=== PATIENT | female | born 2000 | race Two or more races ===

== ENCOUNTER 2022-09-22 16:41 | Emergency (ER) | payer SELFPAY ==
[2022-09-22 17:18] VITALS: BP 105/62; PULSE 86; RESP 16; TEMP 98.5; BMI 32.1
[2022-09-22] MEDS ORDERED: KETOROLAC TROMETHAMINE 30 MG/1 ML VIAL IM ONE (18:50)
[2022-09-22] MEDS ORDERED: KETOROLAC TROMETHAMINE 30 MG/1 ML VIAL ONE (18:51)
== END 2022-09-22 19:43 | disposition home or self-care (01) ==
LOC: JERFT 16:41
PROC: 3E023GC Introduction of Other Therapeutic Substance into Muscle, Percutaneous Approach (ICD-10-PCS; principal; 2022-09-22)
DX: S82.52XA Displaced fracture of medial malleolus of left tibia, initial encounter for closed fracture (principal); W10.8XXA Fall (on) (from) other stairs and steps, initial encounter
CPT/HCPCS: 73610-TC-LT-FY; 99284-25

== ENCOUNTER 2022-10-04 10:15 | Inpatient (IN) | payer OTHER ==
[2022-10-04 12:22] VITALS: BMI 31.1
[2022-10-04] MEDS ORDERED: MIDAZOLAM HCL 2 MG/2 ML SINGLE DOSE VIAL ONE (14:57)
[2022-10-04] MEDS ORDERED: BUPIVACAINE HCL/PF 0.5% (5 MG/ML) 30 ML VIAL IJ ONE (14:57)
[2022-10-04] MEDS ORDERED: FENTANYL CITRATE/PF 50 MCG/ML VIAL ONE ×2 (14:58→17:36)
[2022-10-04] MEDS ORDERED: PROPOFOL 20 ML ONE (15:37)
[2022-10-04] MEDS ORDERED: ceFAZolin SODIUM 1 GM VIAL ONE (15:49)
[2022-10-04] MEDS ORDERED: ONDANSETRON 4 MG/2 ML VIAL ONE ×2 (15:53→17:36)
[2022-10-04] MEDS ORDERED: DEXAMETHASONE SOD PHOSPHATE 4 MG/1 ML VIAL ONE (15:53)
[2022-10-04] MEDS ORDERED: KETOROLAC TROMETHAMINE 30 MG/1 ML VIAL ONE (17:24)
[2022-10-04] MEDS ORDERED: ACETAMINOPHEN INJECTION 100 ML IVPB ONE (17:39)
[2022-10-04] MEDS ORDERED: HYDROmorphone HCL/PF 1 MG/ML VIAL ONE (17:39)
[2022-10-04] MEDS: HYDROmorphone HCl 2 MG/ML VIAL IVPUSH PRN ×3 (17:43→18:03)
[2022-10-04] MEDS ORDERED: ONDANSETRON 4 MG/2 ML VIAL IVPUSH PRN (17:44)
[2022-10-04] MEDS ORDERED: oxyCODONE HCL 5 MG TABLET PO PRN (17:44)
[2022-10-04] MEDS ORDERED: LACTATED RINGERS SOLUTION 1,000 ML IV SCH (17:45)
[2022-10-05] MEDS ORDERED: ACETAMINOPHEN 1000 MG/100 ML BAG IVPB PRN
[2022-10-05] MEDS: CEFAZOLIN SODIUM 2 GM in DEXTROSE 5%-WATER 100 ML IVPB SCH ×2 (00:10→08:09)
[2022-10-05 08:12] LABS: HEMATOCRIT 33.1 % (32.4-45.2); HEMOGLOBIN 11.5 G/dL (10.7-15.3); MCH 33.3 pg (25.7-33.7); MCHC 34.8 g/dl (32.0-36.0); MEAN CELL VOLUME 95.8 fl (80-96); PLATELET COUNT 328.9 10^3/uL (134-434); RBC 3.46 10^6/uL (3.60-5.2); RDW 14.5 % (11.6-15.6); WHITE BLOOD COUNT 11.5 10^3/uL (4.0-10.8)
[2022-10-05 08:42] LABS: CALCIUM 9.3 mg/dl (8.5-10); CREATININE 0.8 mg/dl (0.55-1.3)
[2022-10-05] MEDS ORDERED: ASPIRIN 81 MG CHEWABLE TABLETS PO SCH (10:00)
[2022-10-05 12:11] VITALS: RESP 18
[2022-10-05 15:04] VITALS: BP 100/59; PULSE 72; TEMP 98.3
== END 2022-10-05 15:43 | disposition home or self-care (01) | DRG 313 ==
LOC: EDSTATUS 10:15 → FM/S 11:23
PROVIDERS: ADMIT Orthopaedic Surgery Sports Medicine; ATTEND Orthopaedic Surgery Sports Medicine
PROC: 0QSH04Z Reposition Left Tibia with Internal Fixation Device, Open Approach (ICD-10-PCS; principal; 2022-10-04 16:04)
DX: S82.52XA Displaced fracture of medial malleolus of left tibia, initial encounter for closed fracture (principal); W19.XXXA Unspecified fall, initial encounter; Y93.9 Activity, unspecified; Y92.89 Other specified places as the place of occurrence of the external cause; Y99.9 Unspecified external cause status
CPT/HCPCS: 36415; 73610-TC-LT-FY; 80048; 81025; 85027; 94760; 97116-GP; 97161-GP; C1713